=== PATIENT | male | born 1965 | race Caucasian/White ===

== ENCOUNTER 2018-06-26 22:22 | Emergency (ER) | payer MEDICAID ==
[~2018-06-26] VITALS: Ht 165.1 cm; Wt 77.2 kg
[2018-06-26 22:43] VITALS: BP 161/110
--- NOTE | 2018-06-26 23:03 | NUR ---
TO ER BED 4
--- NOTE | 2018-06-26 23:03 | NUR ---
PT PRESENTS TO ED WITH LEFT SIDE REYNOLDS PAIN, 01/25. HX STROKE X2 YEARS AGO. PT HAS MINIMAL DISABILITY FROM PREVIOUS STROKE. LEFT SIDE WEAKNESS THAT REQUIRES USE OF CANE FOR AMBULATION. BILAT HAND STRENGTH STRONG. BILAT PUPILS PERRLA. NO FACIAL DROOP. NO SLURRED SPEECH. PT STATES PAIN SEVERE X3 DAYS AND HAD REYNOLDS PREVIOUS TO HIS STROKE. REQUESTING MD EVALUATION AT THIS TIME. FAMILY AT BEDSIDE. SIDE RAILS UP. POSTIONED FOR COMFORT. ER MD AWARE. CONTINUE TO MONITOR.
[2018-06-27] MEDS ORDERED: KETOROLAC 60 MG/2 ML VIAL IM ONE (00:30)
[2018-06-27] MEDS ORDERED: diphenhydrAMINE 50 MG/ML VIAL IM ONE (00:30)
[2018-06-27 01:16] VITALS: BP 148/67
--- NOTE | 2018-06-27 01:16 | NUR ---
Patient discharged with v/s stable. Written and verbal after care instructions given and explained. Patient alert, oriented and verbalized understanding of instructions. Ambulatory with cane assist. All questions addressed prior to discharge. ID band removed. Patient advised to follow up with PMD. Rx of Benadryl and Motrin given. Patient educated on indication of medication including possible reaction and side effects. Opportunity to ask questions provided and answered.
== END 2018-06-27 01:16 | disposition home or self-care (01) ==
LOC: MED 22:22
DX: R51 Headache (principal); H53.149 Visual discomfort, unspecified; R53.1 Weakness; Z86.73 Personal history of transient ischemic attack (TIA), and cerebral infarction without residual deficits
CPT/HCPCS: 70450; 96372; 99284; J1200; J1885

== ENCOUNTER 2022-05-26 15:38 | Emergency (ER) | payer MEDICAID ==
[~2022-05-26] VITALS: Ht 160 cm; Wt 73.0 kg
[2022-05-26 16:02] VITALS: BP 130/91
--- NOTE | 2022-05-26 17:29 | NUR ---
PT TAKEN TO XRAY VIA W/C.
[2022-05-26] MEDS ORDERED: ALBU0.0912 IH (18:42)
[2022-05-26] MEDS ORDERED: BENZ-300 PO (18:42)
[2022-05-26] MEDS ORDERED: PROM118S5 PO (18:42)
[2022-05-26 18:55] VITALS: BP 130/91
--- NOTE | 2022-05-26 18:55 | NUR ---
Patient discharged with v/s stable. Written and verbal after care instructions given and explained. Patient alert, oriented and verbalized understanding of instructions. Ambulatory with steady gait. All questions addressed prior to discharge. ID band removed. Patient advised to follow up with PMD. Rx of cepacol, albueterol, promethazine given. Patient educated on indication of medication including possible reaction and side effects. Opportunity to ask questions provided and answered.
== END 2022-05-26 18:55 | disposition home or self-care (01) ==
LOC: MED 15:38
DX: U07.1 COVID-19 (principal); J06.9 Acute upper respiratory infection, unspecified; Z79.899 Other long term (current) drug therapy; Z86.73 Personal history of transient ischemic attack (TIA), and cerebral infarction without residual deficits
CPT/HCPCS: 71045; 87081; 87426; 99284; Q0092

== ENCOUNTER 2022-05-31 11:34 | Emergency (ER) | payer MEDICAID ==
[~2022-05-31] VITALS: Ht 152.4 cm; Wt 73.5 kg
[~2022-05-31 11:34] MED LIST: ALBU0.0912 IH; BENZ-300 PO; PROM118S5 PO
[2022-05-31 11:53] VITALS: BP 140/98
--- NOTE | 2022-05-31 12:30 | NUR ---
57/M WALKED IN C/O COUGH X 1 WK REQUESTING COUGH MED. AFEBRILE AT TRIAGE. AAO4, AMBULATORY, VITALS STABLE, ON ROOM AIR.
[2022-05-31] MEDS ORDERED: IBUP-2213 PO (12:58)
[2022-05-31] MEDS ORDERED: LIDO15SO PO (12:58)
[2022-05-31] MEDS ORDERED: BENZ100C6 PO (12:58)
--- NOTE | 2022-05-31 13:35 | NUR ---
Patient discharged with v/s stable. Written and verbal after care instructions given. Patient alert, oriented and verbalized understanding of instructions. Ambulatory with steady gait. All questions addressed prior to discharge. ID band removed. Patient advised to follow up with PMD. Rx of Benzonatate, Ibuprofen and Lidocaine given. Opportunity to ask questions provided and answered. WORK NOTE HANDED TO PATIENT
== END 2022-05-31 13:35 | disposition home or self-care (01) ==
LOC: MED 11:34
DX: U07.1 COVID-19 (principal); Z86.73 Personal history of transient ischemic attack (TIA), and cerebral infarction without residual deficits
CPT/HCPCS: 71045; 99283

== ENCOUNTER 2022-10-03 16:07 | Emergency (ER) | payer SELFPAY ==
[~2022-10-03] VITALS: Ht 165.1 cm; Wt 74.8 kg
[~2022-10-03 16:07] MED LIST changes: +BENZ100C6 PO; +IBUP-2213 PO; +LIDO15SO4 PO
[2022-10-03 16:19] VITALS: BP 134/84
--- NOTE | 2022-10-03 16:23 | NUR ---
PT AMB TO BED 4
--- NOTE | 2022-10-03 16:26 | NUR ---
ARON HANLEY AT BEDSIDE FOR EVALUATION
--- NOTE | 2022-10-03 16:49 | NUR ---
Phil rivera in [facility], [place] - 10/03/22 at 1649 by PHSEP MD ARTIS AT [facility] FOR EVALUATION
--- NOTE | 2022-10-03 16:54 | NUR ---
Patient discharged with v/s stable. Written and verbal after care instructions FOR STYE given and explained. Patient verbalized understanding. Ambulatory with steady gait. All questions addressed prior to discharge. Advised to follow up with PMD.
--- NOTE | 2022-10-03 16:55 | NUR ---
The patient's care was reviewed and supervised by ED Agency Nurse 9, RN, RN.
== END 2022-10-03 16:54 | disposition home or self-care (01) ==
LOC: MED 16:07
DX: H00.016 Hordeolum externum left eye, unspecified eyelid (principal); Z79.899 Other long term (current) drug therapy; Z86.73 Personal history of transient ischemic attack (TIA), and cerebral infarction without residual deficits
CPT/HCPCS: 99282